=== PATIENT | male | born 1995 | race Caucasian/White ===

== ENCOUNTER 2017-02-21 20:29 | Emergency (ER) | payer SELFPAY ==
[2017-02-21 20:48] VITALS: BP 158/101; RESP 16; TEMP 98.2
[2017-02-21 21:14] VITALS: PULSE 68; O2SAT 97
--- NOTE | 2017-02-21 23:37 | EDPHY ---
ED Progress Note Narrative: This patient left the emergency department without being seen. I did not see this patient while he was in the emergency department.
== END 2017-02-21 21:45 | disposition left against medical advice (07) ==
LOC: EDBD
DX: Z53.21 Procedure and treatment not carried out due to patient leaving prior to being seen by health care provider (principal)

== ENCOUNTER 2017-02-24 13:14 | Emergency (ER) | payer MEDICAID ==
[2017-02-24 13:24] VITALS: TEMP 97.7
--- NOTE | 2017-02-24 14:10 | EDPHY ---
H & P Smoking Status: Never smoked Time Seen by Provider: 02/24/17 14:09 HPI/ROS: Chief complaint. Difficulty breathing HPI. 21-year-old male presents emergency department with difficulty breathing especially with exertion over the past 2 days. No chest discomfort. No cough or fever. He again is worse with exertion. He does not have a long history. He borrowed an albuterol inhaler which may be helped. He then had syncopal episode this morning while at work. He does have a history of anxiety and panic attacks. No unusual leg pain or swelling ROS Constitutional. no fever/chills, no weakness Eyes. no problems with vision ENT. no sore throat, no nasal drainage Cardiovascular. no chest pain Respiratory. Exertional shortness of breath but no cough Abdominal. no abdominal pain, no nausea/vomiting, no diarrhea . no problems urinating MS. no calf pain/swelling, no neck/back pain, no joint pain Skin. no rash Lymph. no swollen glands Neuro. no headache, no dizziness, no difficulty walking or with speech (Varinder Miller) Past Medical/Surgical History: Panic attacks (Varinder Miller) Social History: Single, nonsmoker, no alcohol (Varinder Miller) Physical Exam: General Appearance: Alert well-developed male mild distress vital signs stable Eyes: Pupils equal and round no pallor or injection. ENT, Mouth: Mucous membranes are moist. Respiratory: There are no retractions, lungs are clear to auscultation. Cardiovascular: Regular rate and rhythm. Gastrointestinal: Abdomen is soft and nontender, no masses, bowel sounds normal. Neurological: Awake and alert, sensory and motor exams grossly normal. Skin: Warm and dry, no rashes. Musculoskeletal: Neck is supple nontender. Extremities symmetrical, full range of motion. Psychiatric: Patient is oriented X 3, there is no agitation. (Varinder Miller) Constitutional: Initial Vital Signs Temperature (C) 36.5 C 02/24/17 13:16 Heart Rate 86 02/24/17 13:16 Respiratory Rate 28 H 02/24/17 13:16 Blood Pressure 109/81 H 02/24/17 13:16 O2 Sat (%) 99 02/24/17 13:16 O2 Delivery Mode Room Air Allergies/Adverse Reactions: No Known Allergies Allergy (Unverified 02/21/17 20:46) Home Medications: Medication Instructions Recorded Albuterol 02/21/17 Hydrocodone/APAP 5/325 [[place] 1 each PO Q4-6PRN PRN #14 tab 02/24/17 5/325 (*)] Medical Decision Making - Diagnostics EKG Interpretation: EKG interpreted by me shows normal sinus rhythm with normal interval and axis. QRS is normal there is no significant ST elevation or depression. No arrhythmia. The rate is 66 (Varinder Miller) Imaging Results: Imaging Impressions Chest X-Ray 02/24/17 14:49 Impression: Extrapulmonic air described above. Chest x-ray interpreted by me and discussed with Dr. Apodaca shows pneumomediastinum with air tracking up into the trapezius muscles (Varinder Miller) Procedures: IV normal saline, monitor DuoNeb updraft. Ativan orally (Varinder Miller) ED Course/Re-evaluation: Re-evaluated after DuoNeb. Patient lungs remain clear. Patient and I discussed imaging study results, treatment plan including criteria for return. He is offered admission however he declines and wants to go home. We discussed criteria for return. (Varinder Miller) 4:20 p.m.. Patient's lab work is back and is reassuring. Patient's care was signed out to me by Dr. Miller with the plan of discharge if his lab work was unremarkable and if his symptoms did not worsen. I spoke with the patient. I urged him to be admitted or at least observed for several more hours. I also spoke with his mom over his phone. The patient is adamant that he does not want to stay and would like to go home. He states that he lives close and can return if his symptoms worsen suddenly. He has had the symptoms for several days and thinks that they began 3 or 4 days ago when he was hyperventilating and panicking because of anxiety. He does not have a fever. He is not toxic- appearing. He is stable vital signs. He has capacity make his own medical decisions. He is discharged at this time to follow up with surgery on Sunday. His mom states that she will take him there. (Zaki Valladares) Differential Diagnosis: I considered pneumonia, pneumothorax, pulmonary embolus, arrhythmia, asthma exacerbation (Varinder Miller) Care Turn Over: Dr. Valladares at 1500Dr. Blaine at 3:30 pm (Varinder Miller) - Data Points Laboratory Results: Laboratory Results 02/24/17 15:31 02/24/17 15:31 02/24/1717 02/24/17 15:31 15:31 15:31 WBC 9.03 10^3/uL 10^3/uL (3.80-9.50) RBC 5.14 10^6/uL 10^6/uL (4.40-6.38) Hgb 15.6 g/dL g/dL (13.7-17.5) Hct 44.2 % % (40.0-51.0) MCV 86.0 fL fL (81.5-99.8) MCH 30.4 pg pg (27.9-34.1) MCHC 35.3 g/dL g/dL (32.4-36.7) RDW 11.6 % % (11.5-15.2) Plt Count 221 10^3/uL 10^3/uL (150-400) MPV 10.4 fL fL (8.7-11.7) Neut % (Auto) 71.4 % % (39.3-74.2) Lymph % (Auto) 21.8 % % (15.0-45.0) [place] % (Auto) 4.8 % % (4.5-13.0) Eos % (Auto) 1.3 % % (0.6-7.6) Baso % (Auto) 0.4 % % (0.3-1.7) Nucleat RBC Rel Count 0.0 % % (0.0-0.2) Absolute Neuts (auto) 6.44 10^3/uL 10^3/uL (1.70-6.50) Absolute Lymphs (auto) 1.97 10^3/uL 10^3/uL (1.00-3.00) Absolute Monos (auto) 0.43 10^3/uL 10^3/uL (0.30-0.80) Absolute Eos (auto) 0.12 10^3/uL 10^3/uL (0.03-0.40) Absolute Basos (auto) 0.04 10^3/uL 10^3/uL (0.02-0.10) Absolute Nucleated RBC 0.00 10^3/uL 10^3/uL (0-0.01) Immature Gran % 0.3 % % (0.0-1.1) Immature Gran # 0.03 10^3/uL 10^3/uL (0.00-0.10) D-Dimer < 0.27 ug/mLFEU ug/mLFEU (0.00-0.50) Sodium 140 mEq/L mEq/L (134-144) Potassium 3.3 mEq/L L mEq/L (3.5-5.2) Chloride 102 mEq/L mEq/L (97-110) Carbon Dioxide 25 mEq/l mEq/l (22-31) Anion Gap 13 mEq/L mEq/L (8-16) BUN 21 mg/dL mg/dL (7-23) Creatinine 1.0 mg/dL mg/dL (0.7-1.3) Estimated GFR > 60 Glucose 99 mg/dL mg/dL (70-100) Calcium 9.4 mg/dL mg/dL (8.5-10.4) Troponin I < 0.012 ng/mL ng/mL (0-0.034) Medications Given: Discontinued Medications Hydrocodone Bitart/Acetaminophen ([place] 5/325mg Prepack#6) 1 btl TAKEHOME EDNOW ONE Stop: 02/24/17 19:16 Last Admin: 02/24/17 19:22 Dose: 1 btl Albuterol/Ipratropium (Duoneb) 3 ml IH EDNOW ONE Stop: 02/24/17 14:50 Last Admin: 02/24/17 15:20 Dose: 3 ml Sodium Chloride (Ns) 1,000 mls @ 0 mls/hr IV ONCE ONE PRN Reason: Wide Open Stop: 02/24/17 14:50 Last Admin: 02/24/17 15:30 Dose: 1,000 mls Lorazepam (Ativan) 1 mg PO EDNOW ONE Stop: 02/24/17 14:50 Last Admin: 02/24/17 15:20 Dose: 1 mg Departure - Departure Disposition: Home, Routine, Self-Care Clinical Impression: Pneumomediastinum Condition: Good Instructions: Hydrocodone/Acetaminophen (By mouth), Dyspnea (ED) Additional Instructions: No heavy lifting, bearing down, exertion for 1 week. Ibuprofen and hydrocodone as needed for discomfort. Return for worsening symptoms. 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 Referrals: Hadley Booker MD [Medical Doctor] - As per Instructions Joaquin Anderson MD [Medical Doctor] - As per Instructions Prescriptions: Hydrocodone/APAP 5/325 [[place] 5/325 (*)] 1 each PO Q4-6PRN PRN #14 tab PRN Reason: Pain, Moderate
[2017-02-24] MEDS ORDERED: IPRATROPIUM/ALBUTEROL 3 ML DEYVIAL IH ONE (14:49)
[2017-02-24] MEDS ORDERED: LORazepam 1 MG TAB PO ONE (14:49)
[2017-02-24] MEDS ORDERED: NS 1,000 ML IV ONE (14:49)
--- NOTE | 2017-02-24 15:29 | CPEKG ---
Heart Rate: 66 RR Interval: 909 P-R Interval: 116 QRSD Interval: 94 QT Interval: 416 QTC Interval: 436 P Gordon: -25 QRS Gordon: 93 T Wave Gordon: 50 EKG Severity - OTHERWISE NORMAL ECG - EKG Impression: SINUS RHYTHM EKG Impression: BORDERLINE RIGHT AXIS DEVIATION Electronically Signed By: Varinder Miller 24-Feb-2017 15:50:15
[2017-02-24 15:41] LABS: % IMMATURE GRANULYOCYTES 0.3 % (0.0-1.1); ABSOLUTE IMMATURE GRANULOCYTES 0.03 10^3/uL (0.00-0.10); ADD DIFF? NO; ADD MORPH? NO; ADD SCAN? NO; ATYPICAL LYMPHOCYTE FLAG 10 (0-99); FRAGMENT RBC FLAG 0 (0-99); HEMATOCRIT 44.2 % (40.0-51.0); HEMOGLOBIN 15.6 g/dL (13.7-17.5); LEFT SHIFT FLG 0 (0-99); LIPEMIA HEMOLYSIS FLAG 90 (0-99); MEAN CELL HEMOGLOBIN 30.4 pg (27.9-34.1); MEAN CELL HEMOGLOBIN CONCENTR. 35.3 g/dL (32.4-36.7); MEAN PLATELET VOLUME 10.4 fL (8.7-11.7); PLATELET CLUMPS FLAG 0 (0-99); PLATELET COUNT 221 10^3/uL (150-400); RED BLOOD CELL COUNT 5.14 10^6/uL (4.40-6.38); RED CELL DISTRIBUTION WIDTH 11.6 % (11.5-15.2)
[2017-02-24 15:55] LABS: ANION GAP 13 mEq/L (8-16); CALCIUM 9.4 mg/dL (8.5-10.4); CARBON DIOXIDE 25 mEq/l (22-31); CHLORIDE 102 mEq/L (97-110); GLOMERULAR FILTRATION RATE > 60; GLUCOSE 99 mg/dL (70-100); POTASSIUM 3.3 mEq/L (3.5-5.2); SODIUM 140 mEq/L (134-144)
[2017-02-24 16:06] LABS: TROPONIN I < 0.012 ng/mL (0-0.034)
[2017-02-24 17:04] VITALS: BP 118/68; PULSE 63; RESP 16; O2SAT 96
[2017-02-24] MEDS: HYDROCOD/APAP 5/325 PREPACK#6 BTL TAKEHOME ONE ×2 (19:22→23:50)
== END 2017-02-24 17:04 | disposition home or self-care (01) ==
LOC: EDBD 13:14
DX: J98.2 Interstitial emphysema (principal)

== ENCOUNTER 2018-06-09 11:46 | Emergency (ER) | payer OTHER, MEDICAID ==
[2018-06-09 11:50] VITALS: BP 101/83
[2018-06-09] MEDS ORDERED: TDAP ADULT 0.5 ML INJ (BOOSTRIX) IM ONE (12:02)
--- NOTE | 2018-06-09 12:09 | EDPHY ---
H & P Stated Complaint: left thumb lac while using chain saw this morning Time Seen by Provider: 06/09/18 12:05 HPI/ROS: HPI: This is a 23-year-old male who presents with Chief Complaint: left thumb lac while using chain saw this morning Location: left thumb pad Quality: cut on chainsaw Duration: 2 hr ago Signs and Symptoms: + bleeding, no radiation, no numbness, no weakness, no tingling, no incontinence, no decreased range of motion, no swelling, + pain, no fever Timing: Acute Severity: Mild Context: Patient is right-hand dominant, was in a tree wearing harness and using a chain saw to cut limbs when he accidentally nicked his left thumb finger pad on the chain saw blade. He reports that it immediately started to bleed and he felt moderate pain but denies any pain currently. He applied direct pressure, climb down the tree, and drove over an hour to the emergency room for evaluation. Unsure of tetanus status. Denies paresthesias, radiation, decreased range of motion. Modifying Factors: Direct pressure Comment: ROS: A comprehensive 10 system review of systems is otherwise negative aside from elements mentioned in the history of present illness. MEDICAL/SURGICAL/SOCIAL HISTORY: Medical history: Generally healthy. Does not take any regular medications. Surgical history: Denies Social history: Employed. smoker. CONSTITUTIONAL: Extremely anxious adult male, dreaded hair noted, awake and alert, no obvious distress HEENT: Atraumatic and normocephalic. NECK: supple EXTREMITIES: 2/2 pulses, strength 5/5, left thumb pad shows skin avulsion, superficial, sparing nail, measuring 1.5 cm. no active bleeding. DIP/PIP/MCP flexion/extension intact with good light touch sensation. no deformities, no clubbing, no cyanosis or edema. NEUROLOGICAL: no focal neuro deficits. GCS 15. Light touch sensation intact. SKIN: Warm and dry, no erythema. no rash. Good capillary refill. Source: Patient Exam Limitations: No limitations - Personal History Current Tetanus/Diphtheria Vaccine: No Current Tetanus Diphtheria and Acellular Pertussis (TDAP): No - Medical/Surgical History Hx Asthma: No Hx Chronic Respiratory Disease: No Hx Diabetes: No Hx Cardiac Disease: No Hx Renal Disease: No Hx Cirrhosis: No Hx Alcoholism: No Hx HIV/AIDS: No Hx Splenectomy or Spleen Trauma: No Other PMH: Painc Attack - Social History Smoking Status: Never smoked Constitutional: Initial Vital Signs Temperature (C) 36.7 C 06/09/18 11:47 Heart Rate 108 H 06/09/18 11:47 Respiratory Rate 18 06/09/18 11:47 Blood Pressure 101/83 H 06/09/18 11:47 O2 Sat (%) 96 06/09/18 11:47 O2 Delivery Mode Room Air Allergies/Adverse Reactions: No Known Allergies Allergy (Verified 06/09/18 11:47) Home Medications: Medication Instructions Recorded NK [No Known Home Meds] 06/09/18 Medical Decision Making ED Course/Re-evaluation: Tetanus booster given. Local anesthesia of 3 mL of 1% lidocaine provided. Copiously irrigated. Not able to be sutured. Good hemostasis achieved. Clean sterile dressing applied. Written and verbal wound care instructions provided. No signs of neurovascular compromise/tenting of skin/compartment syndrome/ extremities and joints examined above and below area of concern and are neurovascularly intact. This patient was seen under the supervision of my secondary supervising physician. I evaluated care for this patient independently. Discussed this patient with Dr. Lr. Differential Diagnosis: Differential diagnosis includes but is not limited to laceration, skin avulsion , nerve injury, tendon injury. - Data Points Medications Given: Discontinued Medications Diphtheria/Tetanus/Acell Pertussis (Boostrix) 0.5 ml IM .ONCE ONE Stop: 06/09/18 12:03 Last Admin: 06/09/18 12:04 Dose: 0.5 ml Departure - Departure Disposition: Home, Routine, Self-Care Clinical Impression: Avulsion of skin of thumb without complication Qualifiers: Encounter type: initial encounter Laterality: left Qualified Code(s): S61.002A - Unspecified open wound of left thumb without damage to nail, initial encounter Condition: Good Instructions: Skin Avulsion (ED) Additional Instructions: Keep the dressing dry and in place for 48 hours. After 48 hours, you may remove the dressing; wash the site daily with mild soap and water; then pat dry. Apply topical antibiotic ointment daily and keep covered until fully healed. Monitor for signs of infection. Referrals: [facility],. [Clinic] - As per Instructions Stand Alone Forms: Work Excuse
== END 2018-06-09 12:54 | disposition home or self-care (01) ==
DX: S61.012A Laceration without foreign body of left thumb without damage to nail, initial encounter (principal); F17.200 Nicotine dependence, unspecified, uncomplicated; Z23 Encounter for immunization; W31.2XXA Contact with powered woodworking and forming machines, initial encounter; Y92.9 Unspecified place or not applicable; Y93.9 Activity, unspecified; Y99.9 Unspecified external cause status

== ENCOUNTER 2018-06-11 10:43 | Emergency (ER) | payer OTHER, MEDICAID ==
[2018-06-11 10:58] VITALS: BP 106/81
--- NOTE | 2018-06-11 11:26 | EDPHY ---
H & P Stated Complaint: wound check Time Seen by Provider: 06/11/18 11:22 HPI/ROS: HPI: This is a 23 year male who presents with Chief Complaint: Wound check Location: Left thumb Quality: Wound check Duration: 2 days Signs and Symptoms: No bleeding, no radiation, no numbness, no weakness, no tingling, no incontinence, no decreased range of motion, no swelling, + pain, no fever Timing: Improved Severity: 05/03 Context: Patient was seen by myself in the emergency room on 06/09/2018 after he nicked his left thumb finger pad on a chain saw while at work. Superficial skin avulsion was noted and no sutures indicated. Local wound care with secondary intention was advised. Patient reports that he has not filled his prescription or performed local wound care. In fact he admits to not taking a bath in over 13 days. Patient complains of 8/10 constant pain that is nonradiating in nature. Pain is worsened with touching the area or any movement. Denies any redness, warmth, discharge, paresthesias, weakness. Modifying Factors: None Comment: ROS: A comprehensive 10 system review of systems is otherwise negative aside from elements mentioned in the history of present illness. MEDICAL/SURGICAL/SOCIAL HISTORY: Medical history: Anxiety disorder Surgical history: Denies Social history: Employed, nonsmoker CONSTITUTIONAL: Nontoxic-appearing, anxious adult white male, dreaded hair, awake and alert, no obvious distress HEENT: Atraumatic and normocephalic. NECK: supple EXTREMITIES: 2/2 pulses, strength 5/5, left thumb shows well-healing a 4th of an inch skin avulsion; no surrounding erythema/fluctuance. DIP/PIP/MCP flexion/ extension intact with good light touch sensation. no deformities, no clubbing, no cyanosis or edema. NEUROLOGICAL: no focal neuro deficits. GCS 15. Light touch sensation intact. SKIN: Warm and dry, no erythema. no rash. Good capillary refill. Source: Patient, Old records Exam Limitations: No limitations - Personal History Current Tetanus/Diphtheria Vaccine: Yes Current Tetanus Diphtheria and Acellular Pertussis (TDAP): Yes - Medical/Surgical History Hx Asthma: No Hx Chronic Respiratory Disease: No Hx Diabetes: No Hx Cardiac Disease: No Hx Renal Disease: No Hx Cirrhosis: No Hx Alcoholism: No Hx HIV/AIDS: No Hx Splenectomy or Spleen Trauma: No Other PMH: Painc Attack - Social History Smoking Status: Never smoked Constitutional: Initial Vital Signs Temperature (C) 36.6 C 06/11/18 10:54 Heart Rate 84 06/11/18 10:54 Respiratory Rate 16 06/11/18 10:54 Blood Pressure 106/81 H 06/11/18 10:54 O2 Sat (%) 96 06/11/18 10:54 O2 Delivery Mode Room Air Allergies/Adverse Reactions: No Known Allergies Allergy (Verified 06/11/18 10:54) Home Medications: Medication Instructions Recorded Cephalexin [Keflex (*)] 500 mg PO TID #21 cap 06/11/18 traMADol [Ultram 50 mg (*)] 50 - 100 mg PO Q6 PRN #12 tab 06/11/18 Medical Decision Making Procedures: Procedure: Splint placement. A aluminum finger splint was applied by the RN. After application of the splint I returned and re-examined the patient. The splint was adequately immobilizing the joint and distal to the splint the patient's circulation and sensation was intact. ED Course/Re-evaluation: Cleaned with soap and water. Xeroform and clean sterile dressing applied. Placed in finger aluminum cage splint for comfort. Patient has not bathed in over 14 days, no clear signs of infection but at high risk, placed on Keflex. Also given small amount of tramadol due to severe pain. No signs of neurovascular compromise/tenting of skin/compartment syndrome/ extremities and joints examined above and below area of concern and are neurovascularly intact/tenosynovitis/abscess. This patient was seen under the supervision of my secondary supervising physician. I evaluated care for this patient independently. Discussed this patient with Dr. Duron. Differential Diagnosis: Differential diagnosis includes wound check. Departure - Departure Disposition: Home, Routine, Self-Care Clinical Impression: Visit for wound check Condition: Good Instructions: Skin Avulsion (ED) Additional Instructions: Keep the dressing dry and in place for 48 hours. After 48 hours, you may remove the dressing; wash the site daily with mild soap and water; then pat dry. Wear finger splint until fully healed. Take Keflex 3 times a day x7 days. Take Tylenol 650 mg every 4 hours and/or Ibuprofen 600 mg every 8 hours with food as needed for pain. Use Tramadol every 6 hours as needed for severe/break through pain. Referrals: [facility],. [Clinic] - As per Instructions Prescriptions: Cephalexin [Keflex (*)] 500 mg PO TID #21 cap traMADol [Ultram 50 mg (*)] 50 - 100 mg PO Q6 PRN #12 tab PRN Reason: Pain, Breakthrough
== END 2018-06-11 11:39 | disposition home or self-care (01) ==
DX: S61.002D Unspecified open wound of left thumb without damage to nail, subsequent encounter (principal); W29.3XXD Contact with powered garden and outdoor hand tools and machinery, subsequent encounter; Y99.0 Civilian activity done for income or pay

== ENCOUNTER 2018-06-29 10:57 | Emergency (ER) | payer MEDICAID, OTHER ==
[2018-06-29 11:05] VITALS: BP 98/70
--- NOTE | 2018-06-29 11:18 | EDPHY ---
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 No known history of trauma. No lymphangitic streaking. No fever no chills. No flu- like symptoms. PHYSICAL EXAM (Prior to examination, patient consented to physical exam, hands were washed and my usual and customary physical exam procedures followed) 1) GENERAL: Well-developed, well-nourished, alert and oriented. Appears to be in no acute distress. 2) HEAD: Normocephalic 3) HEENT: sclera anicteric 4) LUNGS: Breathing comfortably. 5) SKIN: Left ulnar forearm tender erythematous indurated carbuncle. No lymphangitic streaking. Nonfluctuant. Nondraining. 6) MUSCULOSKELETAL: Soft compartments. Radial ulnar median nerve function intact distally. Smoking Status: Current some day smoker Constitutional: Initial Vital Signs Temperature (C) 36.7 C 06/29/18 11:03 Heart Rate 90 06/29/18 11:03 Respiratory Rate 16 06/29/18 11:03 Blood Pressure 98/70 L 06/29/18 11:03 O2 Sat (%) 98 06/29/18 11:03 O2 Delivery Mode Room Air Allergies/Adverse Reactions: No Known Allergies Allergy (Verified 06/11/18 10:54) Home Medications: Medication Instructions Recorded Cephalexin [Keflex] 500 mg PO TID 10 Days cap 06/29/18 Sulfamethox/Tmp 800/160 mg 1 tab PO BID@1000,2200 10 Days tab 06/29/18 [Bactrim Ds] MDM/Departure - MDM ED Course/Re-evaluation: Doubt necrotizing fasciitis, doubt abscess. Indurated however nonfluctuant. I do not think that incision and drainage indicated at this time. I recommended warm packs. His tetanus is already up-to-date. Bactrim and Keflex oral antibiotics. Recommend that he does not power this area himself. My usual and customary wound precautions instructions provided. He feels comfortable being discharged. I saw this patient independently based on established practice protocols. Care of patient under supervision of secondary supervising physician Dr Rudy Laws with whom I discussed case. - Depart Disposition: Home, Routine, Self-Care Clinical Impression: Carbuncle Condition: Good Instructions: Furunculosis and Carbunculosis (ED) Additional Instructions: Return to the ER if you develop redness, swelling, discharge, warmth to the wound, red streaks going up your arm, or any other symptoms that concern you. Prescriptions: Cephalexin [Keflex] 500 mg PO TID 10 Days cap Sulfamethox/Tmp 800/160 mg [Bactrim Ds] 1 tab PO BID@1000,2200 10 Days tab Referrals: [facility],. [Clinic] - 2-3 days, call for appt.
== END 2018-06-29 11:24 | disposition home or self-care (01) ==
DX: L02.434 Carbuncle of left upper limb (principal); F17.200 Nicotine dependence, unspecified, uncomplicated; Z59.0 Homelessness

== ENCOUNTER 2018-06-30 17:36 | Emergency (ER) | payer MEDICAID ==
[2018-06-30 17:50] VITALS: BP 122/72
--- NOTE | 2018-06-30 17:53 | EDPHY ---
H & P Stated Complaint: left arm infection, seen here yeseterday for same. Time Seen by Provider: 06/30/18 17:52 - Personal History Current Tetanus Diphtheria and Acellular Pertussis (TDAP): No - Medical/Surgical History Hx Asthma: No Hx Chronic Respiratory Disease: No Hx Diabetes: No Hx Cardiac Disease: No Hx Renal Disease: No Hx Cirrhosis: No Hx Alcoholism: No Hx HIV/AIDS: No Hx Splenectomy or Spleen Trauma: No Other PMH: pneumo. appy - Social History Smoking Status: Current some day smoker Constitutional: Initial Vital Signs Temperature (C) 36.3 C 06/30/18 17:47 Heart Rate 124 H 06/30/18 17:47 Respiratory Rate 16 06/30/18 17:47 Blood Pressure 122/72 H 06/30/18 17:47 O2 Sat (%) 95 06/30/18 17:47 O2 Delivery Mode Room Air Allergies/Adverse Reactions: No Known Allergies Allergy (Verified 06/11/18 10:54) Home Medications: Medication Instructions Recorded Cephalexin [Keflex] 500 mg PO TID 10 Days cap 06/29/18 Sulfamethox/Tmp 800/160 mg 1 tab PO BID@1000,2200 10 Days tab 06/29/18 [Bactrim Ds] Medical Decision Making ED Course/Re-evaluation: CHIEF COMPLAINT: Left arm infection HISTORY OF PRESENT ILLNESS: The patient is a 23 y/o male with a history of MRSA complaining of a worsening left arm infection. Yesterday the patient had fevers and chills, but did not have any today. The patient was seen here yesterday for the same complaint and prescribed Bactrim and Keflex. He did not have an I&D preformed yesterday. Per the patient he was unable to fill the antibiotics. No known history of trauma. No lymphangitic streaking. No fever no chills. No flu-like symptoms. REVIEW OF SYSTEMS: A comprehensive 10 system review of systems is otherwise negative aside from elements mentioned in the history of present illness and medical decision making. PHYSICAL EXAM: HR, BP, O2 Sat, RR. Temp noted General Appearance: Alert, well hydrated, appropriate, and non-toxic appearing. Head: Atraumatic without scalp tenderness or obvious injury Eyes: Pupils equal, round, reactive to light and accommodation, EOMI, no trauma , no injection. Ears: Clear bilaterally, no perforation, normal landmarks Nose: Atraumatic, no rhinorrhea, clear. Throat: There is no erythema or exudates, no lesions, normal tonsils, mucus membranes moist. Neck: Supple, nontender, no lymphadenopathy. Respiratory: No retractions, no distress, no wheezes, and no accessory muscle use. Lungs are clear to auscultation bilaterally. Cardiovascular: Regular rate and rhythm, no murmurs, rubs, or gallops. Bilateral carotid, radial, dorsalis pedis, and posterior tibial pulses intact. Good capillary refill all extremities. Gastrointestinal: Abdomen is soft, nontender, non-distended, no masses, no rebound, no guarding, no peritoneal signs. Musculoskeletal: Normal active ROM of all extremities, atraumatic. Neurological: Alert, appropriate, and interactive. The patient has normal DTRs and non-focal cranial nerves, motor, sensory, and cerebellar exam. Skin: Left ulnar forearm tenderness, erythematous indurated abscess. No rashes , good turgor, no nodules on palpation. Past medical history: Pneumonia, MRSA Past surgical history: Appendectomy Family history: Denies Social history: Lives in [place], single, employed DIAGNOSTICS/PROCEDURES/CRITICAL CARE TIME: Procedure: Abscess drainage. The patient's abscess was located on the left ulnar forearm. Risks, benefits, alternatives discussed with the patient and consent obtained. The patient as anesthetized with lidocaine with epinephrine. The abscess was incised with a # 11 blade and purulent drainage and a small place of wood was expressed. The wound was irrigated and packed. The patient tolerated the procedure well. The procedure was performed by myself, Dr. Laws. DIFFERENTIAL DIAGNOSIS: The differential diagnosis for the patient's abscess included but was not limited to abscess, cellulitis, lymphangitis, and sepsis. MEDICAL DECISION MAKING: The patient is a 23 y/o male with a history of MRSA presenting with a worsening left arm infection. On exam the patient has a left ulnar forearm abscess that will need an I&D. 1803: I preformed an I&D on the patient. There was a small place of wood expressed. I have advised him to take Bactrim as previously prescribed; I have given him Bactrim prior to discharge. Return precautions provided; patient is comfortable with this plan Departure - Departure Disposition: Home, Routine, Self-Care Clinical Impression: Abscess of left arm, foreign body in abscess Condition: Good Instructions: Abscess (ED), Abscess Incision and Drainage (DC) Additional Instructions: 1. Take Bactrim as prescribed. 2. Return to the Emergency Department for fever, redness, discharge from wound, increasing pain or other worsening of condition. Referrals: [facility],. [Clinic] - As per Instructions [facility] [Clinic] - As per Instructions Report Scribed for: Rudy Laws Report Scribed by: Danay Aleman Date of Report: 06/30/18 Time of Report: 17:56
[2018-06-30] MEDS ORDERED: SULFAMETHOX/TMP 800/160 MG 1 TAB PO ONE (18:14)
== END 2018-06-30 18:18 | disposition home or self-care (01) ==
PROC: 0H9EXZZ Drainage of Left Lower Arm Skin, External Approach (ICD-10-PCS; principal; 2018-06-30)
DX: L02.414 Cutaneous abscess of left upper limb (principal); F17.200 Nicotine dependence, unspecified, uncomplicated

== ENCOUNTER 2018-07-15 17:49 | Emergency (ER) | payer MEDICAID ==
[2018-07-15] MEDS ORDERED: FAMOTIDINE 20 MG/NACL 50 ML IV ONE (19:30)
[2018-07-15] MEDS ORDERED: KETOROLAC 30 MG/1 ML SDV IVP ONE (19:30)
[2018-07-15] MEDS ORDERED: NS 1,000 ML IV ONE (19:30)
--- NOTE | 2018-07-15 19:30 | EDPHY ---
H & P Time Seen by Provider: 07/15/18 19:05 HPI/ROS: CHIEF COMPLAINT: MRSA, fever, abdominal pain HISTORY OF PRESENT ILLNESS: The patient is a 23-year-old male who presents emergency department with multiple complaints. Patient states he has previously had MRSA. He was seen in the emergency department on 06/30/2018 for a left forearm abscess. This was drained in he was started on Bactrim. However , the patient states that he did not fill his prescription. Patient states his forearm has not been causing him significant pain. There is no significant new swelling. However, the patient is not been feeling well for the past 1-2 weeks. He feels weak and fatigued. Patient states that he has had intermittent fevers. He has not measured his temperature at home. The patient developed abdominal cramping at 3:00 p.m Today. No nausea or vomiting. No diarrhea. REVIEW OF SYSTEMS: 10 systems were reveiwed and are negative with the exception of the elements mentioned in the history of present illness. 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 The patient smokes C. He does not smoke or use alcohol. Smoking Status: Current some day smoker Physical Exam: Vitals noted GENERAL: Mild acute distress, alert. HEENT: Eyes normal to inspection, normal pharynx, no signs of dehydration. Nasal piercing NECK: Normal, supple. RESPIRATORY: Clear to auscultation bilaterally, no rales, rhonchi or wheezing. CVS: Regular rate and rhythm, no rubs, murmurs, or gallops. ABDOMEN: Soft, mild epigastric tenderness to palpation, nondistended, no organomegaly. BACK: Normal to inspection, no CVA tenderness. SKIN: Multiple tattoos. Normal color, no rash, warm, dry. No pallor. EXTREMITIES: Patient's left forearm has a small area of redness surrounding the I&D site. There is no streaking up the arm. No significant tenderness. No fluctuance. No pedal edema, no calf tenderness, no Homans sign or cords, no joint swelling. NEURO/PSYCH: Alert and oriented, normal mood and affect, normal motor sensory exam. No obvious cranial nerve deficit. Constitutional: Initial Vital Signs Temperature (C) 36.8 C 07/15/18 17:59 Heart Rate 96 10/22/18 17:59 Respiratory Rate 18 07/15/18 17:59 Blood Pressure 111/72 07/15/18 17:59 O2 Sat (%) 97 07/15/18 17:59 O2 Delivery Mode Room Air Allergies/Adverse Reactions: No Known Allergies Allergy (Verified 07/15/18 17:59) Home Medications: Medication Instructions Recorded Cephalexin [Keflex] 500 mg PO TID 10 Days cap 06/29/18 Sulfamethox/Tmp 800/160 mg 1 tab PO BID@1000,2200 10 Days tab 06/29/18 [Bactrim Ds] Sulfamethox/Tmp 800/160 mg 1 tab PO BID #14 tab 07/15/18 [Bactrim Ds] Medical Decision Making ED Course/Re-evaluation: In the emergency department discussed possible etiologies with the patient. I answered all his questions. IV was placed. Patient given normal saline. He is given Toradol 30 mg IV. Laboratory studies were obtained. Patient's CBC chemistry unremarkable. LFTs and lipase were normal. I discussed the results with the patient. I answered all his questions. On recheck he was feeling better. He had no abdominal pain. Repeat abdominal exam was benign. Patient was given warnings prior to leaving. He will return with worsening symptoms. Differential Diagnosis: My differential includes but is not limited to MRSA, bacteremia, sepsis, pancreatitis, cholecystitis, small-bowel obstruction, perforation - Data Points Laboratory Results: Laboratory Results 07/15/18 19:45 07/15/18 19:45 07/15/18 07/15/18 07/15/18 19:45 19:45 19:45 WBC 11.02 10^3/uL H 10^3/uL (3.80-9.50) RBC 4.76 10^6/uL 10^6/uL (4.40-6.38) Hgb 14.6 g/dL g/dL (13.7-17.5) Hct 42.5 % % (40.0-51.0) MCV 89.3 fL fL (81.5-99.8) MCH 30.7 pg pg (27.9-34.1) MCHC 34.4 g/dL g/dL (32.4-36.7) RDW 12.0 % % (11.5-15.2) Plt Count 251 10^3/uL 10^3/uL (150-400) MPV 9.1 fL fL (8.7-11.7) Neut % (Auto) 90.3 % H % (39.3-74.2) Lymph % (Auto) 5.3 % L % (15.0-45.0) Morgan % (Auto) 3.4 % L % (4.5-13.0) Eos % (Auto) 0.3 % L % (0.6-7.6) Baso % (Auto) 0.4 % % (0.3-1.7) Nucleat RBC Rel Count 0.0 % % (0.0-0.2) Absolute Neuts (auto) 9.96 10^3/uL H 10^3/uL (1.70-6.50) Absolute Lymphs (auto) 0.58 10^3/uL L 10^3/uL (1.00-3.00) Absolute Monos (auto) 0.38 10^3/uL 10^3/uL (0.30-0.80) Absolute Eos (auto) 0.03 10^3/uL 10^3/uL (0.03-0.40) Absolute Basos (auto) 0.04 10^3/uL 10^3/uL (0.02-0.10) Absolute Nucleated RBC 0.00 10^3/uL 10^3/uL (0-0.01) Immature Gran % 0.3 % % (0.0-1.1) Seg Neutrophils % 87.9 % % Band Neutrophils % 0.0 % % Lymphocytes % 6.0 % % Monocytes % 6.1 % % Eosinophils % 0.0 % % Basophils % 0.0 % % Metamyelocytes % 0.0 % % Myelocytes % 0.0 % % Promyelocytes % 0.0 % % Blast Cells % 0.0 % % Immature Gran # 0.03 10^3/uL 10^3/uL (0.00-0.10) Absolute Seg Neuts 9.69 10^3/uL H 10^3/uL (1.70-6.50) Absolute Band Neuts 0.00 10^3/uL 10^3/uL (0.00-0.70) Absolute Lymphocytes 0.66 10^3/uL L 10^3/uL (1.00-3.00) Absolute Monocytes 0.67 10^3/uL 10^3/uL (0.30-0.80) Absolute Eosinophils 0.00 10^3/uL L 10^3/uL (0.03-0.40) Absolute Basophils 0.00 10^3/uL L 10^3/uL (0.02-0.10) Absolute Metamyelocyte 0.00 10^3/mL 10^3/mL (0.00-0.00) Absolute Myelocytes 0.00 10^3/mL 10^3/mL (0.00-0.00) Absolute Promyelocytes 0.00 10^3/uL 10^3/uL (0.00-0.00) Absolute Plasma Cells 0.00 10^3/uL 10^3/uL (0.00-0.00) Nucleated RBCs 0 /100 WBC /100 WBC (0-0) RBC/WBC/PLT Morphology NORMAL (NORMAL) Absolute Blast Cells 0.00 10^3/uL 10^3/uL (0.00-0.00) Plasma Cells % 0.0 % % Platelet Estimate ADEQUATE (ADEQ) PT 12.6 SEC SEC (12.0-15.0) INR 0.92 (0.83-1.16) APTT 27.1 SEC SEC (23.0-38.0) Sodium 135 mEq/L mEq/L (135-145) Potassium 4.3 mEq/L mEq/L (3.3-5.0) Chloride 99 mEq/L mEq/L (97-110) Carbon Dioxide 27 mEq/l mEq/l (22-31) Anion Gap 9 mEq/L mEq/L (6-14) BUN 19 mg/dL mg/dL (7-23) Creatinine 0.8 mg/dL mg/dL (0.7-1.3) Estimated GFR > 60 Glucose 108 mg/dL H mg/dL (70-100) Calcium 9.1 mg/dL mg/dL (8.5-10.4) Total Bilirubin 0.5 mg/dL mg/dL (0.1-1.4) Conjugated Bilirubin 0.1 mg/dL mg/dL (0.0-0.5) Unconjugated Bilirubin 0.4 mg/dL mg/dL (0.0-1.1) AST 28 IU/L IU/L (17-59) ALT 32 IU/L IU/L (21-72) Alkaline Phosphatase 87 IU/L IU/L (38-126) Total Protein 7.2 g/dL g/dL (6.3-8.2) Albumin 4.3 g/dL g/dL (3.5-5.0) Lipase 57 IU/L IU/L (23-300) Medications Given: Discontinued Medications Sodium Chloride (Ns) 1,000 mls @ 0 mls/hr IV EDNOW ONE; Wide Open PRN Reason: Protocol Stop: 07/15/18 19:31 Last Admin: 07/15/18 19:43 Dose: 1,000 mls Famotidine/Sodium Chloride (Pepcid 20 Mg (Premix)) 50 mls @ 200 mls/hr IV EDNOW ONE Stop: 07/15/18 19:44 Last Admin: 07/15/18 19:43 Dose: 50 mls Ketorolac Tromethamine (Toradol) 30 mg IVP EDNOW ONE Stop: 07/15/18 19:31 Last Admin: 07/15/18 19:44 Dose: 30 mg Departure - Departure Disposition: Home, Routine, Self-Care Clinical Impression: Cellulitis of forearm, left Condition: Good Instructions: Cellulitis (ED) Additional Instructions: Take your entire course of antibiotics. Return for recheck. Return with increasing pain, swelling, fever or any other concerns. Referrals: [facility],. [Clinic] - 5-7 days, call for appt. Prescriptions: Sulfamethox/Tmp 800/160 mg [Bactrim Ds] 1 tab PO BID #14 tab
[2018-07-15 20:01] LABS: PLATELET COUNT 251 10^3/uL (150-400)
[2018-07-15 20:10] LABS: INR 0.92 (0.83-1.16); PROTIME(PATIENT) 12.6 SEC (12.0-15.0)
[2018-07-15] MEDS ORDERED: SULFAMET/TMP DS PREPACK#2 BTL TAKEHOME ONE (20:19)
[2018-07-15 21:10] VITALS: BP 122/81
== END 2018-07-15 21:09 | disposition home or self-care (01) ==
DX: L03.114 Cellulitis of left upper limb (principal); E86.9 Volume depletion, unspecified; F17.200 Nicotine dependence, unspecified, uncomplicated; Z86.14 Personal history of Methicillin resistant Staphylococcus aureus infection
CPT/HCPCS: 96374; J1885

== ENCOUNTER 2018-08-07 23:18 | Emergency (ER) | payer MEDICAID ==
[2018-08-07 23:30] VITALS: BP 129/90
[2018-08-08] MEDS ORDERED: IBUPROFEN 200 MG TAB PO ONE (00:04)
--- NOTE | 2018-08-08 00:04 | EDPHY ---
H & P Stated Complaint: TOOTH PAIN Time Seen by Provider: 08/07/18 23:42 HPI/ROS: HPI The patient presents with tooth pain which has been present for the last several weeks though has become worse over the last 3 days since eating a large amount of candy. The pain is achy, worse when he eats, worse at night, and is not associated with any fevers or chills, difficulty swallowing, nausea or vomiting. He has been seeing a dentist at the [facility]. He has been told he needs a root canal. He has been taking ibuprofen, the last took it 3 days ago. It helped somewhat he says.. REVIEW OF SYSTEMS 10 systems were reviewed and negative with the exception of the elements mentioned in the history of present illness. 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 Is tender to palpation with small amount of erythema along the buccal gum line., no trismus, no area of fluctuance Respiratory: Breathing comfortably Neurological: A&O, moves all extremities Skin: Warm and dry, no rashes Musculoskeletal: Neck is supple non tender Extremities: symmetrical, full range of motion Psychiatric: Patient is oriented X 3, there is no agitation Source: Patient Exam Limitations: No limitations - Personal History Current Tetanus/Diphtheria Vaccine: Yes Current Tetanus Diphtheria and Acellular Pertussis (TDAP): Yes - Medical/Surgical History Hx Asthma: No Hx Chronic Respiratory Disease: No Hx Diabetes: No Hx Cardiac Disease: No Hx Renal Disease: No Hx Cirrhosis: No Hx Alcoholism: No Hx HIV/AIDS: No Hx Splenectomy or Spleen Trauma: No Other PMH: pneumo. appy - Social History Smoking Status: Current some day smoker Constitutional: Initial Vital Signs Temperature (C) 36.6 C 08/07/18 23:26 Heart Rate 102 H 08/07/18 23:26 Respiratory Rate 18 08/07/18 23:26 Blood Pressure 129/90 H 08/07/18 23:26 O2 Sat (%) 97 08/07/18 23:26 O2 Delivery Mode Room Air Allergies/Adverse Reactions: No Known Allergies Allergy (Verified 07/15/18 17:59) Home Medications: Medication Instructions Recorded NK [No Known Home Meds] 08/07/18 Medical Decision Making Differential Diagnosis: 23-year-old male presents with dental pain of a molar which has been intermittent for weeks though worse after eating candy. He does not have any signs of infection, may have mild pulpitis. I have recommended treatment with ibuprofen. He says he can follow up with his dentist tomorrow. I have considered abscess though I feel this is unlikely. He will be discharged home. - Data Points Medications Given: Discontinued Medications Ibuprofen (Motrin) 600 mg PO EDNOW ONE Stop: 08/08/18 00:05 Last Admin: 08/08/18 00:10 Dose: 600 mg Departure - Departure Disposition: Home, Routine, Self-Care Clinical Impression: Pain, dental Condition: Good Instructions: Toothache (ED) Additional Instructions: Please follow-up with your dentist. Continue to take ibuprofen as needed. I would recommend ibuprofen 400 mg every 6 hr. Referrals: [facility] [Outside] - As per Instructions
== END 2018-08-08 00:14 | disposition home or self-care (01) ==
DX: K08.89 Other specified disorders of teeth and supporting structures (principal); F17.200 Nicotine dependence, unspecified, uncomplicated

== ENCOUNTER 2018-11-28 19:38 | Emergency (ER) | payer MEDICAID ==
[2018-11-28 19:43] VITALS: BP 122/72
== END 2018-11-28 21:05 | disposition left against medical advice (07) ==
DX: Z53.21 Procedure and treatment not carried out due to patient leaving prior to being seen by health care provider (principal)